=== PATIENT | male | born 1980 | race Caucasian/White ===

== ENCOUNTER 2016-11-21 09:59 | Outpatient (CLI) | payer MEDICARE, OTHER ==
[2016-11-21 10:13] LABS: BASOPHILS % 0.3 (0.0-1.5); EOSINOPHILS % 4.6 % (0.0-6.8); LYMPHOCYTES # 2.8 # k/uL (0.6-4.0); MEAN CORPUSCULAR HEMOGLOBIN 32.7 pg (28.0-34.0); MONOCYTES # 0.4 # k/uL (0.0-0.9); NEUTROPHILS # 3.4 # k/uL (1.4-7.7)
[2016-11-21 10:58] LABS: eGFR (African) > 60; eGFR (Non-African) > 60
== END 2016-11-21 10:00 ==
LOC: LAB 09:59
PROVIDERS: ATTEND Family Medicine
DX: Z51.81 Encounter for therapeutic drug level monitoring (principal); I10 Essential (primary) hypertension; R63.5 Abnormal weight gain
CPT/HCPCS: 36415; 80053; 80171; 84443; 85025

== ENCOUNTER 2017-02-10 16:47 | Emergency (ER) | payer MEDICARE, OTHER ==
[2017-02-10] MEDS ORDERED: IBUPROFEN 400 MG TABLET PO ONE (16:58)
[2017-02-10] MEDS ORDERED: DIPH,PERTUSS(ACELL),TET VAC/PF 0.5 ML DISP.SYRIN IM ONE (16:58)
--- NOTE | 2017-02-10 18:12 | ED Physician Documentation ---
Hand Injury - HISTORIAN Historian: patient - HPI Stated Complaint: R THUMB INJURY Chief Complaint: Hand Injury Additional Information: got it caught in door at work Onset: just prior to arrival Where: work Severity: moderate Duration: persistent since (injury) Context: blow Location of Injury: R hand Modifying Factors: pain on movement Further Comments: no - ROS CONST: no problems GI/: denies: problems urinating, nausea, vomiting NEURO: none CVS/RESP: none LNMP: denies: , post-menopausal EYES/ENT: none MS/SKIN/LYMPH: other (pain right thumb) - PAST HX Past History: other (htn) Immunizations: tetanus Allergies/Adverse Reactions: Allergies Allergy/AdvReac Type Severity Reaction Status Date / Time Penicillins AdvReac Intermediate Unknown Verified 02/10/17 17:06 Home Medications: Ambulatory Orders Medication Instructions Recorded Cetirizine HCl [Zyrtec] 10 mg PO DAILY 02/10/17 Lamotrigine [Lamictal] 150 mg PO BID 02/10/17 Lisinopril 10 mg PO DAILY 02/10/17 Ziprasidone HCl [Geodon] 60 mg PO BID 02/10/17 - SOCIAL HX Smoking History: non-smoker Alcohol Use: none Drug Use: none - FAMILY HX Family History: no significant history - VITAL SIGNS Vital Signs: Vital Signs Temp Pulse Resp BP Pulse Ox 98.5 F 93 H 18 124/73 98 02/10/17 16:47 02/10/17 16:47 02/10/17 16:47 02/10/17 16:47 02/10/17 16:47 - REVIEWED ASSESSMENTS Nursing Assessment Reviewed: Yes Vitals Reviewed: Yes Procedures Wound Location: upper extremity Wound Length: 1 cm Wound's Depth, Shape: superficial Wound Explored: clean Betadine Prep?: No (surgical soap/water) Anesthesia: Other (none) Wound Debrided: none Wound Repaired With: Dermabond Sterile Dressing Applied?: Yes Splint Applied?: Yes Sling Applied?: No Progress - Results/Orders Results/Orders: x-ray right thumb ordered - Progress Progress: Pt. stable entire time in er, laceration site cleaned, skin adhesive applied and finger protector applied. Critical Care Note - Critical Care Note Total Time (mins): 0 ED Results Lab/Radiology - Lab Results Lab Results: none taken - Radiology Radiology Impressions: x-ray right thumb neg for fx or dislocation - Orders Orders: ED Orders Category Date Time Status Finger Splint 1T Care 02/10/17 17:57 Ordered XRAY THUMB [FINGER 2 VIEWS OR MORE] [RAD] Stat Exams 02/10/17 Ordered Diph,Pertuss(Acell),Tet Vac/Pf [Adacel] Med 02/10/17 16:58 Discontinued 0.5 ml IM .ONCE ONE Ibuprofen [Advil] Med 02/10/17 16:58 Discontinued 800 mg PO NOW ONE Hand Injury Physical Exam - Exam General Appearance: alert, mild distress Hand: tenderness (distal phalynx), other (1 cm horizontal superficial laceration dorsal right thumb distal to DIP joint.) Wrist: normal inspection, non-tender, no evidence of injury, normal ROM Neuro: sensation nml, motor nml Vascular: no vascular compromise Tendons: tendon function nml Forearm/Elbow/Arm: uninjured above wrist, tenderness, soft-tissue tenderness Skin: warm/dry, normal color Head/ENT: nml inspection, pharynx nml Neck/Back: nml inspection, non-tender Resp/CVS: chest non-tender, breath sounds nml, heart sounds nml, no resp. distress, lungs clear, reg. rate & rhythm Abdomen: non-tender, no organomegaly, nml bowel sounds, no distention Discharge Clincal Impression: Laceration of right thumb Qualifiers: Encounter type: initial encounter Qualified Code(s): S61.011A - Laceration without foreign body of right thumb without damage to nail, initial encounter Home Medications: Ambulatory Orders Cetirizine HCl [Zyrtec] 10 mg PO DAILY 02/10/17 Lamotrigine [Lamictal] 150 mg PO BID 02/10/17 Lisinopril 10 mg PO DAILY 02/10/17 Ziprasidone HCl [Geodon] 60 mg PO BID 02/10/17 Comments: Discharged after laceration cleaned, skin adhesive applied and splint applied. Condition: Stable Disposition: 01 HOME, SELF-CARE Decision to Admit: NO Decision Time: 18:10
[2017-02-10 18:24] VITALS: BP 120/78
--- NOTE | 2017-02-10 22:02 | Diagnostic Imaging Report ---
JESSICA TRAN~ [facility] [address] [address] ~ ~ ~ ~ Report Submission Date: Feb 10, 2017 5:46:15 PM CDT Patient ~ Study Name: SCOOTER DURAN ~ Date: Feb 10, 2017 5:27:51 PM CDT ~ Modality Type: CR Gender: M ~ Description: UPPER EXTREMITY : 80 ~ Institution: [facility] Physician: JESSICA TRAN ~ ~ ~ ~ The right 1st digit Clinical history: Pain Technique AP lateral oblique Findings: There is no fracture dislocation or other bony pathology. Impression: Negative ~ Electronically signed on Feb 10, 2017 5:46:15 PM CDT by: Donato LIN
== END 2017-02-10 18:10 | disposition home or self-care (01) ==
LOC: ED 16:47 → EDSTATUS 16:48 → ED 18:10
DX: S61.011A Laceration without foreign body of right thumb without damage to nail, initial encounter (principal); X58.XXXA Exposure to other specified factors, initial encounter; Y93.9 Activity, unspecified; Y99.9 Unspecified external cause status
CPT/HCPCS: 12001; 73140; 90471; 90715; 99283

== ENCOUNTER 2017-08-09 15:10 | Outpatient (CLI) | payer MEDICARE ==
--- NOTE | 2017-08-09 18:15 | Diagnostic Imaging Report ---
ROSALIE RUSSELL [facility] [address] [address] Report Submission Date: Aug 09, 2017 3:47:11 PM CDT Patient Study Name: SCOOTER DURAN Date: Aug 09, 2017 3:18:27 PM CDT Modality Type: CR Gender: M Description: LOWER EXTREMITY : 80 Institution: [facility] Physician: ROSALIE RUSSELL Examination: Plain film foot History: Discomfort Findings: 3 views of the foot demonstrates normal cortical margins. No fracture or dislocation. Calcaneal spurs. No soft tissue swelling. No joint effusion. Impression: Calcaneal spurs. No acute osseous process. Electronically signed on Aug 09, 2017 3:47:11 PM CDT by: Arun LIN
== END 2017-08-09 15:20 ==
LOC: RAD 15:10
PROVIDERS: ATTEND Family Medicine
DX: M79.671 Pain in right foot (principal)
CPT/HCPCS: 73630

== ENCOUNTER 2018-02-25 22:17 | Emergency (ER) | payer MEDICARE, OTHER ==
--- NOTE | 2018-02-25 22:38 | ED Physician Documentation ---
General Adult - HISTORIAN Historian: patient - HPI Stated Complaint: abd pain Chief Complaint: General Adult Onset: hours Timing: still present Severity: moderate Further Comments: yes (Pt is a 37 yo male with mild MR who c/o abd pain. Pt initially c/o burning pain in epigastrium, later of pain radiating to both sides of lower abdomen. Pt had some loose bm's earlier, with no blood seen. Pt has not had fever, n/v. Pt has hx abd pain due to constipation.) - ROS CONST: no problems EYES/ENT: none CVS/RESP: none GI/: abdominal pain, diarrhea MS/SKIN/LYMPH: none - PAST HX Past History: other (MR, HTN, constipation) Allergies/Adverse Reactions: Allergies Allergy/AdvReac Type Severity Reaction Status Date / Time Penicillins AdvReac Intermediate Unknown Verified 02/25/18 22:38 Home Medications: Ambulatory Orders Medication Instructions Recorded Ziprasidone HCl [Geodon] 80 mg PO BID 02/10/17 Acetaminophen [Tylenol Extra 500 mg PO Q4 PRN 02/25/18 Strength] Lamotrigine [Lamictal] 100 mg PO BID 02/25/18 Topiramate [Topamax] 75 mg PO BID 02/25/18 - SOCIAL HX Smoking History: cigarettes - FAMILY HX Family History: No - VITAL SIGNS Vital Signs: Vital Signs Temp Pulse Resp BP Pulse Ox 120/78 02/10/17 18:23 - REVIEWED ASSESSMENTS Nursing Assessment Reviewed: Yes Vitals Reviewed: Yes Progress - Progress Progress: NS 1 L IVF GI cocktail no change with GI cocktail Famotidine 20 mg IV X-ray abdomen: A normal to moderate amount of colonic stool is present. There is no evidence of bowel obstruction. Indeterminate bilateral pelvic calcifications are present. Magnesium Citrate. Drink 1/2 bottle. If no bowel movement after 6 hrs, repeat drinking 1/2 bottle. General Adult Physical Exam - PHYSICAL EXAM GENERAL APPEARANCE: mild distress EENT: pharynx normal NECK: normal inspection, supple RESPIRATORY: no resp distress, chest non-tender, breath sounds normal CVS: reg rate & rhythm, heart sounds normal ABDOMEN: soft, normal bowel sounds, tenderness (mild LLQ tenderness) BACK: normal inspection, no CVA tenderness SKIN: warm/dry, normal color EXTREMITIES: non-tender, normal range of motion, no evidence of injury NEURO: oriented X3, motor nml, sensation nml Discharge Clincal Impression: probable constipation Referrals: VEL CARRILLO DO [Primary Care Provider] - Condition: Stable Disposition: 01 HOME, SELF-CARE Decision to Admit: NO Decision Time: 00:18
[2018-02-25] MEDS ORDERED: 0.9 % SODIUM CHLORIDE 1,000 ML IV ONE (22:39)
[2018-02-25] MEDS ORDERED: MAG HYDROX/ALUMINUM HYD/SIMETH 30 ML, Lidocaine 2%Visc 15ml 20 MG, PHENobarb/HYOSCY/ATR... PO ONE ×3 (22:40)
[2018-02-25] MEDS ORDERED: MAG HYDROX/ALUMINUM HYD/SIMETH 30 ML UDC PO ONE (23:08)
[2018-02-25] MEDS ORDERED: Lidocaine 2%Visc 15ml 20 MG/ML UDC ONE (23:08)
[2018-02-25] MEDS ORDERED: FAMOTIDINE/PF 20 MG/2 ML VIAL IVP ONE (23:43)
[2018-02-25 23:51] LABS: BASOPHILS % 0.5 (0.0-1.5); EOSINOPHILS % 3.1 % (0.0-6.8); MEAN CORPUSCULAR HEMOGLOBIN 32.6 pg (28.0-34.0); MEAN CORPUSCULAR VOLUME 95.2 fl (80.0-100.0); MONOCYTES % 5.2 % (0.0-11.0)
[2018-02-26] MEDS ORDERED: MAGNESIUM CITRATE 296 ML BOTTLE PO ONE (00:17)
[2018-02-26 00:45] VITALS: BP 132/60
--- NOTE | 2018-02-26 06:00 | Diagnostic Imaging Report ---
SCOOTER JONES [facility] [address] [facility] [address] [address] Report Submission Date: February 25, 2018 11:27:28 PM CDT Patient Study Name: SCOOTER DURAN Date: February 25, 2018 10:46:51 PM CDT Modality Type: DX Gender: M Description: ABDOMEN : 80 Institution: [facility] Physician: SCOOTER JONES Single view abdomen History: Epigastric pain Findings: A normal to moderate amount of colonic stool is present. There is no evidence of bowel obstruction. Indeterminate bilateral pelvic calcifications are present. Impression: Normal to moderate amount of colonic stool. Electronically signed on February 25, 2018 11:27:28 PM CDT by: Len LIN
[2018-02-26 09:34] LABS: APPEARANCE,URINE CLEAR (CLEAR); COLOR,URINE YELLOW (YELLOW); OCCULT BLOOD,URINE NEGATIVE (NEGATIVE); PH URINE 6.5 (5.0 - 8.0)
== END 2018-02-26 00:40 | disposition home or self-care (01) ==
LOC: ED 22:17
DX: R10.9 Unspecified abdominal pain (principal)
CPT/HCPCS: 74018; 81002; 85025; A9270; J7030; 96360; 96374; 99284; S0028; S1016

== ENCOUNTER 2019-08-18 13:02 | Emergency (ER) | payer OTHER ==
--- NOTE | 2019-08-18 13:17 | ED Physician Documentation ---
General Adult - HISTORIAN Historian: patient - HPI Stated Complaint: laceration Chief Complaint: General Adult Onset: minutes Timing: still present Severity: mild Further Comments: yes (Pt is a 38 yo male with laceration to the tip of his R small finger on the bautista side. Pt was cutting chicken when he injured his finger. Tetanus is utd. P) - ROS CONST: no problems EYES/ENT: none CVS/RESP: none GI/: none MS/SKIN/LYMPH: other (finger laceration) - PAST HX Past History: none Allergies/Adverse Reactions: Allergies Allergy/AdvReac Type Severity Reaction Status Date / Time cinnamon Allergy Verified 08/18/19 13:23 jennifer Allergy Verified 08/18/19 13:23 nutmeg oil (Myristica seed Allergy Verified 08/18/19 13:23 oil) Penicillins AdvReac Intermediate Unknown Verified 08/18/19 13:23 Home Medications: Ambulatory Orders Medication Instructions Recorded Ziprasidone HCl [Geodon] 60 mg PO BID 02/10/17 Acetaminophen [Tylenol Extra 500 mg PO Q4 PRN 02/25/18 Strength] Topiramate [Topamax] 50 mg PO BID 02/25/18 lamoTRIgine [Lamictal] 150 mg PO BID 02/25/18 Lisinopril 20 mg PO DAILY 02/08/19 Pantoprazole Sodium [Protonix] 40 mg PO DAILY #30 tablet. 02/09/19 - SOCIAL HX Smoking History: non-smoker - FAMILY HX Family History: No - VITAL SIGNS Vital Signs: Vital Signs Temp Pulse Resp BP Pulse Ox 138/99 02/09/19 00:09 - REVIEWED ASSESSMENTS Nursing Assessment Reviewed: Yes Vitals Reviewed: Yes Procedures Wound Location: upper extremity (bautista side of distal R small finger, over distal phalanx, 1.5 cm.) Wound Length: 1.5 cm Wound's Depth, Shape: superficial Wound Explored: clean Irrigated w/ Saline (ccs): 30 Betadine Prep?: No (Dony) Anesthesia: 1% Lidocaine Volume of Anesthetic: 3 cc Wound Debrided: minimal Wound Repaired With: sutures Suture Size/Type: 4:0, nylon Number of Sutures: 4 Layer Closure?: No Progress - Progress Progress: Triple abx applied in ER to suture site. Apply topical antibiotic such as Neosporin, Bacitracin, or Triple Antibiotic to sutured area every 12 hours for 5 days. Follow up with primary provider in 5 to 7 days for suture removal. General Adult Physical Exam - PHYSICAL EXAM GENERAL APPEARANCE: no distress NECK: normal inspection, supple RESPIRATORY: no resp distress, chest non-tender, breath sounds normal CVS: reg rate & rhythm, heart sounds normal BACK: normal inspection SKIN: other (superficial laceration, 1.5 cm, R small finger, bautista surface over distal phalanx.) EXTREMITIES: normal range of motion, other (laceration R hand, small finger) NEURO: oriented X3, motor nml, sensation nml Discharge Clincal Impression: R small finger laceration Referrals: VEL CARRILLO DO [Primary Care Provider] - Condition: Good Disposition: 01 HOME, SELF-CARE Decision to Admit: NO Decision Time: 14:07
[2019-08-18] MEDS ORDERED: LIDOCAINE HCL 1% MDV 200MG/20ML VIAL ONE (13:21)
[2019-08-18 14:16] VITALS: BP 132/62
[2019-08-18] MEDS ORDERED: LIDOCAINE HCL 1% MDV 200MG/20ML VIAL IM ONE (20:39)
== END 2019-08-18 14:16 | disposition home or self-care (01) ==
LOC: ED 13:02
DX: S61.216A Laceration without foreign body of right little finger without damage to nail, initial encounter (principal); Y93.G3 Activity, cooking and baking
CPT/HCPCS: 12001; 99282

== ENCOUNTER 2019-08-21 19:48 | Emergency (ER) | payer OTHER ==
--- NOTE | 2019-08-21 19:57 | ED Physician Documentation ---
Wound Recheck - HISTORIAN Historian: patient, other (caregiver) - HPI Stated Complaint: sutures broke Chief Complaint: Wound Recheck Additional Information: Patient present to ER with concerns his sutures broke on his laceration. He receive sutures on 08/18/19. Previous ED Treatment: other (sutures) Antibiotics Given: none Symptoms Since Procedure: pain, redness - ROS NEURO: denies: headache CONST: no problems EYES/ENT: none CVS/RESP: none MS/SKIN/LYMPH: denies: leg swelling GI/: none - PAST HX Past History: none Allergies/Adverse Reactions: Allergies Allergy/AdvReac Type Severity Reaction Status Date / Time cinnamon Allergy Verified 08/21/19 19:59 jennifer Allergy Verified 08/21/19 19:59 nutmeg oil (Myristica seed Allergy Verified 08/21/19 19:59 oil) Penicillins AdvReac Intermediate Unknown Verified 08/21/19 19:59 Home Medications: Ambulatory Orders Medication Instructions Recorded Ziprasidone HCl [Geodon] 60 mg PO BID 02/10/17 Acetaminophen [Tylenol Extra 500 mg PO Q4 PRN 02/25/18 Strength] Topiramate [Topamax] 50 mg PO BID 02/25/18 lamoTRIgine [Lamictal] 150 mg PO BID 02/25/18 Lisinopril 20 mg PO DAILY 02/08/19 Pantoprazole Sodium [Protonix] 40 mg PO DAILY #30 tablet. 02/09/19 Cefdinir 300 mg PO Q12 #14 capsule 08/21/19 - SOCIAL HX Smoking History: non-smoker Alcohol Use: none Drug Use: none - FAMILY HX Family History: none - VITAL SIGNS Vital Signs: Vital Signs Temp Pulse Resp BP Pulse Ox 132/62 08/18/19 14:15 - REVIEWED ASSESSMENTS Nursing Assessment Reviewed: Yes Vitals Reviewed: Yes Physical Exam - Physical Exam General Appearance: no apparent distress Ears, Nose, Throat: normal ENT inspection Neck Exam: non-tender, supple Respiratory: chest non-tender, normal breath sounds Cardiovascular/Chest: normal peripheral pulses, regular rate, rhythm, no edema Gastrointestinal/Abdominal: normal bowel sounds, soft Back Exam: normal inspection Skin Exam: normal color Lymphatic: no adenopathy Discharge Clincal Impression: Laceration of finger with infection Qualifiers: Encounter type: initial encounter Qualified Code(s): S61.219A - Laceration without foreign body of unspecified finger without damage to nail, initial encounter; L08.9 - Local infection of the skin and subcutaneous tissue, unspecified Prescriptions: Cefdinir 300 mg PO Q12 #14 capsule Referrals: VEL CARRILLO DO [Primary Care Provider] - 2 Days Additional Instructions: 1. take antibiotic until gone 2. Wash wound twice daily with chlorexidene soap twice daily then apply triple antibiotic ointment 3. Keep wound covered until healed 4. Follow up with PCP in 5 days for suture removal 5. Return to ER for new or worsening symptoms Condition: Stable Disposition: 01 HOME, SELF-CARE Decision to Admit: NO Date of Decison to Admit: 08/21/19 Decision Time: 20:07
[2019-08-21 20:00] VITALS: BP 123/72
[2019-08-21] MEDS: CEFDINIR 300 MG CAPSULE PO ONE (20:18)
== END 2019-08-21 20:20 | disposition home or self-care (01) ==
LOC: ED 19:48
DX: S61.219A Laceration without foreign body of unspecified finger without damage to nail, initial encounter (principal); L08.9 Local infection of the skin and subcutaneous tissue, unspecified; X58.XXXA Exposure to other specified factors, initial encounter
CPT/HCPCS: 99283